=== PATIENT | female | born 1995 | race Caucasian/White ===

== ENCOUNTER 2017-12-04 19:31 | Emergency (ER) | payer OTHER ==
[~2017-12-04] VITALS: Ht 167.6 cm; Wt 83.9 kg
[~2017-12-04 19:31] MED LIST: ACETAMINOPHEN-1 EAC1 PO; CIPRO250 M2 PO; FLAGYL500 MG PO; HYDROCODON-ACE1 EAC8 PO; NOHOMEMEDICATIONS; ZOFRAN ODT4 MG SUBLING; ZOFRAN4 MG PO
[2017-12-04 20:01] LABS: URINE BILIRUBIN NEGATIVE (Negative); URINE BLOOD 2+ (Negative); URINE COLOR YELLOW; URINE GLUCOSE-RANDOM NEGATIVE (Negative); URINE KETONES NEGATIVE (Negative); URINE LEUKOCYTES NEGATIVE (Negative); URINE NITRITE NEGATIVE (Negative); URINE PROTEIN NEGATIVE (Negative); URINE SPECIFIC GRAVITY >= 1.030 (1.005-1.030); URINE UROBILINOGEN 0.2 E.U./dl (0.2-1.0)
[2017-12-04 20:02] LABS: URINE CLARITY HAZY
[2017-12-04 20:09] LABS: SQUAMOUS >10 Many /LPF (0-3)
[2017-12-04 20:10] LABS: BACTERIA None Seen /HPF (None Seen); CASTS None Seen /LPF (None Seen); CRYSTALS None Seen /LPF (None Seen); URINE RBC 0-2 Rare /HPF (0-2); URINE WBC 0-5 Rare /HPF (0-5)
[2017-12-04 20:40] VITALS: BP 126/77
== END 2017-12-04 20:41 | disposition home or self-care (01) ==
LOC: M.ERS 19:31
PROVIDERS: Nurse Practitioner
DX: Z32.02 Encounter for pregnancy test, result negative (principal); Z88.5 Allergy status to narcotic agent